=== PATIENT | female | born 1945 | race Caucasian/White ===

== ENCOUNTER → 2017-02-03 | Outpatient (CLI) | payer MEDICARE, BC ==
[~2017-02-03] MED LIST: AMOXICILLIN 8751 TAB PO; BENICAR 20MG TA20 MG PO; BENICAR HCT 12.1 TAB PO; CALCIUM 600-D 61 TAB PO; CALCIUM600 M2 PO; CRESTOR5 MG PO; FLAGYL500 MG PO; HCTZ 25MG TAB25 MG PO; K-DUR 10 MEQ T10 MEQ PO; KLOR-CON 1010 MEQ PO; KLOR-CON M2020 MEQ PO; LEVAQUIN 250MG250 MG PO; NORCO 325 MG-51 TAB PO; ONDANSETRON4 MG PO; POTASSIUM CH2 MEQ/ML PO; PRINIVIL40 MG PO; REGLAN 5MG T5 MG/TAB PO; TYLENOL 325MG325 MG PO; VESICARE 5MG5 MG PO; VOLTAREN GEL 1%1 TU TP; WOMEN'S DAILY F1 TAB PO; ZOFRAN 4MG T4 MG/TAB PO; [UNRECOGNIZED DRUG - OTHER] PO
== END ==
LOC: MC.RAD 14:09
DX: Z12.31 Encounter for screening mammogram for malignant neoplasm of breast (principal)

== ENCOUNTER → 2018-03-16 | Outpatient (CLI) | payer MEDICARE, BC | LOC: MC.RAD 03-09 14:40 | DX: Z12.31 Encounter for screening mammogram for malignant neoplasm of breast (principal) ==

== ENCOUNTER → 2018-03-23 | Outpatient (CLI) | payer MEDICARE, BC | LOC: MC.RAD 09:00 | DX: R92.0 Mammographic microcalcification found on diagnostic imaging of breast (principal) | CPT/HCPCS: G0279 ==

== ENCOUNTER 2018-09-07 14:14 | Outpatient (CLI) | payer MEDICARE, BC ==
[~2018-09-07] VITALS: Ht 162.6 cm; Wt 79.3 kg
[2018-09-07 14:34] VITALS: BP 167/75; PULSE 77; TEMP 98.1
== END 2018-09-07 14:56 | disposition home or self-care (01) ==
LOC: EUO 14:14
DX: M81.0 Age-related osteoporosis without current pathological fracture (principal)
CPT/HCPCS: J0897

== ENCOUNTER 2019-03-12 13:12 | Outpatient (CLI) | payer MEDICARE, BC ==
[~2019-03-12] VITALS: Ht 162.6 cm; Wt 75.9 kg
[2019-03-12 13:32] VITALS: BP 141/72; PULSE 83; TEMP 98.4
== END 2019-03-12 14:08 | disposition home or self-care (01) ==
LOC: EUO 13:12
DX: M81.0 Age-related osteoporosis without current pathological fracture (principal)
CPT/HCPCS: J0897

== ENCOUNTER → 2019-03-26 | Outpatient (CLI) | payer MEDICARE, BC | LOC: MC.RAD 09:15 | DX: Z12.31 Encounter for screening mammogram for malignant neoplasm of breast (principal); N63.10 Unspecified lump in the right breast, unspecified quadrant ==

== ENCOUNTER 2019-08-15 07:49 | Day surgery (SDC) | payer MEDICARE, BC ==
--- NOTE | 2019-08-14 11:16 | NUR ---
LEFT MESSAGE FOR PATIENT TO RETURN PHONE CALL IN REGARDS TO ID SCREENING AND MEDICAL HISTORY.
[2019-08-15] VITALS (8 sets, daily range): BP systolic 120–173; BP diastolic 63–98; PULSE 62–72; TEMP 98.8
[~2019-08-15] VITALS: Ht 162.6 cm; Wt 77.4 kg
[2019-08-15] MEDS ORDERED: MOBIC15 MG PO (08:36)
[2019-08-15] MEDS ORDERED: TYMLOS1.56 ML SQ (08:37)
[2019-08-15] MEDS ORDERED: CALCIUM CARBON650 M2 PO (08:38)
[2019-08-15] MEDS ORDERED: ASPIRIN E.C. 8181 MG PO (08:39)
[2019-08-15] MEDS ORDERED: ADVIL200 MG PO (08:40)
[2019-08-15] MEDS ORDERED: LOPRESSOR 225 MG/TAB PO (08:42)
[2019-08-15 09:09] LABS: HEMATOCRIT 44.1 % (37.0-47.0); HEMOGLOBIN 14.2 g/dl (12.5-16.0); MEAN CELL VOLUME 91 fl (80.0-100.0); MEAN CORPUSCULAR HEMOGLOBIN 29 pg (27.0-31.0); MEAN CORPUSCULAR HGB CONC 32 g/dl (33.0-37.0); MEAN PLATELET VOLUME 9.2 fl (7.4-10.4); PLATELET COUNT 246 K/mm3 (130-400); RED BLOOD COUNT 4.83 M/mm3 (4.10-5.30); REDCELL DISTRIBUTION WIDTH-CV 13.4 % (11.5-14.5)
[2019-08-15 09:16] LABS: CALCIUM 10.6 mg/dL (8.4-10.2); CREATININE, serum 0.89 (0.52-1.25); POTASSIUM 3.7 mmol/L (3.4-5.0)
[2019-08-15 09:18] LABS: INR 0.9 (0.8-3.0); PROTHROMBIN TIME 10.3 SECONDS (9.7-12.8)
[2019-08-15 09:21] LABS: PARTIAL THROMBOPLASTIN TIME 29.6 SECONDS (26.0-37.0)
--- NOTE | 2019-08-15 10:48 | NUR ---
SEE MERGE FORALL MEDICATION ADMIN TIMES AND INTRA AND POST SEDATION ASSESSMENT
[2019-08-15] MEDS ORDERED: LIPITOR 40MG TA40 MG PO (11:30)
--- NOTE | 2019-08-15 13:45 | NUR ---
Discharge instructions reviewed with pt. Pt voices understanding. Pt tolerating intake with no N/V. 5 mls of air removed from TR Band. After 5 minutes, no bleeding, remaining air removed. 4x4 gauze and coban applied to right radial wrist. Pt up and ambulating in and around the unit with no complications. Pt voided with no complications. IV was discontinued with catheter tip intact, no phlebitis or infiltration. Adina, daughter, was called and notified pt is ready to be discharged. Pt was discharged via w/c to the care of daughter in private vehicle with discharge folder and belongings in hand.
== END 2019-08-15 14:00 | disposition home or self-care (01) ==
LOC: COL.CAR 07:49
PROVIDERS: Internal Medicine Cardiovascular Disease
DX: I25.10 Atherosclerotic heart disease of native coronary artery without angina pectoris (principal); R94.39 Abnormal result of other cardiovascular function study; I10 Essential (primary) hypertension; E87.6 Hypokalemia; E78.2 Mixed hyperlipidemia; M81.0 Age-related osteoporosis without current pathological fracture; I08.1 Rheumatic disorders of both mitral and tricuspid valves; Z88.8 Allergy status to other drugs, medicaments and biological substances; Z88.6 Allergy status to analgesic agent
CPT/HCPCS: J1644; J2250; J3010; Q9967

== ENCOUNTER → 2021-02-16 | Outpatient (CLI) | payer MEDICARE, BC ==
[~2021-02-16] MED LIST changes: +ADVIL200 MG PO; +ASPIRIN E.C. 8181 MG PO; +BACTRIM DS 8001 TAB PO; +CALCIUM CARBON650 M2 PO; +LIPITOR 40MG TA40 MG PO; +LOPRESSOR 225 MG/TAB PO; +MOBIC15 MG PO; +TYMLOS1.56 ML SQ
== END ==
LOC: COL.RAD 12:28
DX: M25.552 Pain in left hip (principal)
CPT/HCPCS: J3301; Q9967

== ENCOUNTER 2021-03-03 12:35 | Inpatient (IN) | payer MEDICARE, BC ==
[~2021-03-03] VITALS: Ht 162.6 cm; Wt 79.1 kg
[2021-03-03 14:20] LABS: BASO % 0.2 % (0.0-2.0); GRAN # 11.2 K/mm3 (1.4-6.5); HEMATOCRIT 39.8 % (37.0-47.0); HEMOGLOBIN 12.3 g/dl (12.5-16.0); LYMPH % 7.6 % (20.0-51.0); MEAN CELL VOLUME 90 fl (80.0-100.0); MEAN CORPUSCULAR HEMOGLOBIN 28 pg (27-31); MEAN CORPUSCULAR HGB CONC 31 g/dl (33.0-37.0); MEAN PLATELET VOLUME 9.1 fl (7.4-10.4); MONO # 0.2 K/mm3 (0.1-0.6); MONO % 1.6 % (1.7-9.3); PLATELET COUNT 266 K/mm3 (130-400); RED BLOOD COUNT 4.44 M/mm3 (4.10-5.30); REDCELL DISTRIBUTION WIDTH-CV 14.4 % (11.5-14.5)
--- NOTE | 2021-03-03 14:30 | NUR ---
Patient tranferred to room #337. Patient is pleasantly confused and keeps asking for her . This nurse reminder her he was here this morning and would not be back because he had some things to take care of at home. Patient is also anxious and has seroquel. Patient is very forgetful and tearful at times because she "does not know what is going on and wants to talk to Stevo." Patient is resting comfortably in bed. Call light and bedside are within reach. Will continue to monitor patient throughout shift.
[2021-03-03 14:36] LABS: ALANINE AMINOTRANSFERASE 15 U/L (0-55); ALBUMIN 3.7 gm/dL (3.4-4.8); ALKALINE PHOSPHATASE 160 U/L (40-150); ANION GAP 14 mmol/L (7-16); AST,SGOT 31 U/L (5-34); BILIRUBIN,TOTAL 0.6 mg/dL (0.2-1.2); BLOOD UREA NITROGEN 24 mg/dL (10-20); CALCIUM 9.5 mg/dL (8.4-10.2); CARBON DIOXIDE 25 mmol/L (23-31); CHLORIDE 98 mmol/L (98-107); CREATININE, serum 0.74 mg/dL (0.57-1.11); GLUCOSE 144 mg/dL (70-99); LIPASE 32 U/L (8-78); POTASSIUM 4.1 mmol/L (3.5-4.5); SODIUM 137 mmol/L (136-145); TOTAL PROTEIN 7.5 gm/dL (6.2-8.1)
[2021-03-03 14:39] LABS: COLLECTION METHOD CLEAN CATCH
[2021-03-03 14:44] LABS: TROPONIN-I < 0.010 ng/mL (0.00-0.033)
[2021-03-03 15:14] LABS: MUCOUS Present (NOT PRESENT); PH 5 (5-8); SQUAMOUS EPITHELIAL None Seen /hpf (0-10); URINE APPEARANCE Hazy (CLEAR/HAZY); URINE BACTERIA Many /hpf (NONE SEEN); URINE BILIRUBIN Negative (NEGATIVE); URINE BLOOD Negative (NEGATIVE); URINE COLOR Yellow (YELLOW); URINE GLUCOSE Negative (NEGATIVE); URINE KETONE Negative (NEGATIVE); URINE LEUKOCYTE ESTERASE 3+ (NEGATIVE); URINE NITRATE Positive (NEGATIVE); URINE PROTEIN(semi-quant) Negative (NEGATIVE); URINE UROBILINOGEN Negative (NEGATIVE)
[2021-03-03] MEDS ORDERED: NORCO 325 MG-51 TAB PO (15:39)
[2021-03-03] MEDS ORDERED: CEPHALEXIN500 M1 PO (15:39)
--- NOTE | 2021-03-03 16:17 | NUR ---
FLORENCE responded to consult. The ED doctor notified FLORENCE that the patient is at her baseline and ready to discharge from the ED. The patient had presented with LLE pain and a possible UTI. FLORENCE contacted the patient's daughter, Jocelyn (ph#[phone]), to update on the above. Jocelyn reports that she has to work another hour, but then she will come and pick the patient up and bring her home. She is coming from [place]. Jocelyn became tearful. She reports that she is unsure how she will get the patient into her home, but she will figure it out. FLORENCE inquired if the patient can stay with her or her sister. Jocelyn reports that she has two stairs and that the patient cannot stay with either of them. FLORENCE informed her of the option of having EMS meet them at the patient's home to assist them getting in. Jocelyn declined and reports that she will figure it out. FLORENCE then offered resources for local nursing homes. Jocelyn reports that she has already been in contact with several nursing homes and they all have COVID restrictions. FLORENCE disussed the option of getting home health set up. Jocelyn was agreeable to this and to use [facility]. Jocelyn informed FLORENCE that the patient is not at her baseline. She reports that the patient was driving and walking two days ago. She would like an update from the RN or doctor on the findings of the patient's UA. She reports that she will be picking the patient up today, once she gets off work. FLORENCE updated the ED staff and the doctor. The patient's RN was in another room at this time. FLORENCE contacted and faxed a referral and the [id number], signed by the ED doctor to Aries at [facility]. Aries reports that they have had the patient in the past and are able to accept her again. No additional needs at this time.
[2021-03-03] MEDS ORDERED: NEURONTIN300 MG/CAP PO (16:46)
[2021-03-03] MEDS ORDERED: VESICARE10 MG PO (16:46)
[2021-03-03 18:17] VITALS: BP 134/55; PULSE 83; TEMP 97.9
[2021-03-03 18:58] VITALS: BP 129/53; PULSE 83; TEMP 98.3
--- NOTE | 2021-03-03 19:13 | NUR ---
Patient transferred from ED to room #342. Patient is propped up on pillows on right side d/t orders and with ice pack. Patient will more than likely have surgery tomorrow but not yet confirmed. Patient has a Amin in place. Patient is NPO. Pt started on a Medrol Dosepak this a.m. Patient does not have hx of recent falls. Patient lives at home with daughter and has home health. Patient is A&O x 3. Patient's left lung, middle lobe removed. Patient oriented to room; call light and bedside table are within reach.
[2021-03-03 22:58] VITALS: BP 140/54; PULSE 77; TEMP 98.6
--- NOTE | 2021-03-03 23:52 | NUR ---
Patient assessed around 2024. Alert and oriented, and able to make needs known. Reported level 8 pain to left hip, and given PRN Morphine as requested. Peripheral INT to left AC. IV fluids started per orders. Voices no questions, needs, or concerns at this time. In bed with call light within reach
[2021-03-04] VITALS (12 sets, daily range): BP systolic 91–147; BP diastolic 39–60; PULSE 63–107; TEMP 97.2–98.2
--- NOTE | 2021-03-04 05:41 | NUR ---
Patient given PRN Morphine once this shift as requested for pain. Has been resting in bed with call light within reach, eyes closed. No further complaints of pain or discomfort voiced at this time.
[2021-03-04 06:58] LABS: BASO % 0.3 % (0.0-2.0); EOS # 0.1 K/mm3 (0.0-0.7); EOS % 0.6 % (0.0-4.0); GRAN # 7.9 K/mm3 (1.4-6.5); GRAN % 70.2 % (42.2-75.2); HEMOGLOBIN 10.6 g/dl (12.5-16.0); LYMPH # 2.2 K/mm3 (1.2-3.4); LYMPH % 19.3 % (20.0-51.0); MEAN CELL VOLUME 89 fl (80.0-100.0); MEAN CORPUSCULAR HEMOGLOBIN 28 pg (27-31); MEAN CORPUSCULAR HGB CONC 31 g/dl (33.0-37.0); MEAN PLATELET VOLUME 9.5 fl (7.4-10.4); PLATELET COUNT 263 K/mm3 (130-400); RED BLOOD COUNT 3.81 M/mm3 (4.10-5.30); REDCELL DISTRIBUTION WIDTH-CV 14.4 % (11.5-14.5)
[2021-03-04 07:05] LABS: HEMATOCRIT 33.9 % (37.0-47.0)
[2021-03-04 07:13] LABS: CALCIUM 9.4 mg/dL (8.4-10.2); CREATININE, serum 1.05 mg/dL (0.57-1.11); POTASSIUM 3.6 mmol/L (3.5-4.5)
--- NOTE | 2021-03-04 07:26 | NUR ---
Report received from ROHIT Pena. Patient is resting in bed. Doctor was in with her and discussing her care and stated her dressing needed to be changed and dressed with an aquacell. Call light and bedside table are within reach. Will continue to monitor patient throughout shift.
--- NOTE | 2021-03-04 07:44 | NUR ---
Ibrhaima from ortho called and told this nurse he was going to put an order in for a MRI and requested an update as to when cardiology sees patient. This nurse will comply.
--- NOTE | 2021-03-04 07:46 | NUR ---
Patient was seen by elvin Smith and was discussing with her in regards to upcoming surgery. He told the patient before they can proceed with surgery, she has to cleared with button machine operator. Patient voiced she understands. Luis also requested this nurse updates him after cardio sees patient.
--- NOTE | 2021-03-04 08:37 | NUR ---
Patient left floor to go to MRI.
--- NOTE | 2021-03-04 11:34 | NUR ---
Patient's surgery has been scheduled for today at 1700 so will have patient ready at 1600.
[2021-03-04 11:39] LABS: PROTHROMBIN TIME 11.6 SECONDS (9.7-12.8)
--- NOTE | 2021-03-04 13:25 | NUR ---
Machine Tool Mechanic attended clinical rounds with the team and patient may have surgery later today. SW met with patient to follow up on discharge planning. Patient states she lives alone in [place] and sees Dr. Azalea Sawant for primary care. Patient advised she has a cane and two walkers at home. Patient reports she was independent prior to her fall. SW advised patient that she would likely need rehab at time of discharge and patient agrees. Patient states she has been to both [facility] and [facility] in the past and would be agreeable to either facilty. Patient would like SW to contact her daughter, Jocelyn to discuss her preferences. SW contacted Jocelyn who agrees that patient will likely need rehab at time of discharge. Jocelyn advised her preferences are 1) [facility] 2) [facility] and 3) [facility]. SW faxed referral to [facility] and [facility] then contacted MELISSA Martin Director to give referral. Discharge Plan: Post acute rehab, pending referrals
--- NOTE | 2021-03-04 13:29 | NUR ---
Mail Service Coordinator updated contacted Aries at [facility] and updated him that patient was admitted and will likely need post acute rehab.
--- NOTE | 2021-03-04 16:08 | NUR ---
Pt off the floor for surgery
--- NOTE | 2021-03-04 19:50 | NUR ---
PT TO ROOM 342 FROM PACU. AWAKE AND ORIENTED X4. HAVING BURNING PAIN TO LT HIP. REPOSITIONED. SEE MAR FOR PAIN MED GIVEN. CALL LIGHT IN REACH. BED ALARM SET.
--- NOTE | 2021-03-04 22:09 | NUR ---
PT RESTING. NO DISTRESS.
[2021-03-05] VITALS (15 sets, daily range): BP systolic 74–112; BP diastolic 35–58; PULSE 64–98; TEMP 97.5–99.2
--- NOTE | 2021-03-05 00:49 | NUR ---
PT RESTING. NO DISTRESS.
--- NOTE | 2021-03-05 05:52 | NUR ---
PT HAS RESTED WELL THIS SHIFT. REPOSITIONS SELF. TAKING PO FLUID WELL. PAIN CONTROLLED WITH MS.
[2021-03-05 06:13] LABS: BASO % 0.1 % (0.0-2.0); GRAN # 8.8 K/mm3 (1.4-6.5); GRAN % 86.3 % (42.2-75.2); HEMOGLOBIN 10.2 g/dl (12.5-16.0); LYMPH # 0.7 K/mm3 (1.2-3.4); LYMPH % 7.1 % (20.0-51.0); MEAN CELL VOLUME 90 fl (80.0-100.0); MEAN CORPUSCULAR HEMOGLOBIN 28 pg (27-31); MEAN CORPUSCULAR HGB CONC 31 g/dl (33.0-37.0); MEAN PLATELET VOLUME 9.4 fl (7.4-10.4); MONO # 0.6 K/mm3 (0.1-0.6); MONO % 6.1 % (1.7-9.3); PLATELET COUNT 230 K/mm3 (130-400); RED BLOOD COUNT 3.64 M/mm3 (4.10-5.30); REDCELL DISTRIBUTION WIDTH-CV 14.1 % (11.5-14.5)
[2021-03-05 06:23] LABS: HEMATOCRIT 32.8 % (37.0-47.0)
[2021-03-05 06:44] LABS: CALCIUM 8.5 mg/dL (8.4-10.2); CREATININE, serum 0.74 mg/dL (0.57-1.11); POTASSIUM 4.1 mmol/L (3.5-4.5)
--- NOTE | 2021-03-05 10:32 | NUR ---
Initial visit; Patient thanked fireman helper for looking in on her though declined further spiritual care.
--- NOTE | 2021-03-05 12:15 | NUR ---
PATIENT JUST CAME BACK FROM BATHROOM TO HAVE A BM AND GOT A LITTLE DIZZY. NOTED B/P IN THE 80'S SYSTOLIC. PATIENT IS A&O AND RESTING IN BED WITHOUT COMPLAINTS. B/P RECHECK WAS STILL IN THE 80'S EVEN WITH HOB FLAT. RN CALLED HOSPITALIST, SEE ORDERS FOR FLUID BOLUS. PATIENT CONTINUES TO DENIES COMPLAINTS AND IS JUST CHATTING WITH STAFF. WILL MONITOR.
--- NOTE | 2021-03-05 13:19 | NUR ---
Glazier Apprentice faxed clinical updates to [facility] and [facility]. Mariam at [facility] advised they can accept. Jayson at [facility] had concerns about patient's medications, Tymlos which is very expensive. FLORENCE also spoke with Veronica, [facility] who advised she can accept pending bed availability. FLORENCE contacted patient's daughter, Jocelyn to provide update. Jocelyn reports she is fine with either [facility] or [facility], but that she will leave it up to the patient. Discharge Plan: [facility] vs [facility] (both can accept)
--- NOTE | 2021-03-05 19:30 | NUR ---
PT STILL HYPOTENSIVE. ASYMPTOMATIC. NO NEEDS AT THIS TIME.
[2021-03-06] VITALS (7 sets, daily range): BP systolic 95–143; BP diastolic 41–63; PULSE 61–102; TEMP 97.9–100
--- NOTE | 2021-03-06 01:13 | NUR ---
NOTIFIED ERNIE RODRIGUEZ REGARDING BP 95/41. SEE ORDER FOR BOLUS.
[2021-03-06 07:39] LABS: BASO % 0.2 % (0.0-2.0); EOS # 0.3 K/mm3 (0.0-0.7); EOS % 3.5 % (0.0-4.0); GRAN # 5.7 K/mm3 (1.4-6.5); GRAN % 70.2 % (42.2-75.2); LYMPH # 1.6 K/mm3 (1.2-3.4); LYMPH % 19.8 % (20.0-51.0); MEAN CELL VOLUME 94 fl (80.0-100.0); MEAN CORPUSCULAR HGB CONC 30 g/dl (33.0-37.0); MONO # 0.5 K/mm3 (0.1-0.6); MONO % 5.8 % (1.7-9.3); PLATELET COUNT 195 K/mm3 (130-400); RED BLOOD COUNT 3.41 M/mm3 (4.10-5.30); REDCELL DISTRIBUTION WIDTH-CV 14.6 % (11.5-14.5)
[2021-03-06 07:41] LABS: HEMATOCRIT 31.9 % (37.0-47.0); HEMOGLOBIN 9.6 g/dl (12.5-16.0); MEAN CORPUSCULAR HEMOGLOBIN 28 pg (27-31)
[2021-03-06 07:50] LABS: CALCIUM 8.4 mg/dL (8.4-10.2); CREATININE, serum 0.74 mg/dL (0.57-1.11)
--- NOTE | 2021-03-06 08:19 | NUR ---
PT ASSESSED. NO COMPLAINTS OF PAIN OR DYSPNEA. NO SIGNS OR SYMPTOMS OF DISTRESS. CALL LIGHT WITHIN REACH.
--- NOTE | 2021-03-06 15:55 | NUR ---
ORTHO CALLED FRO ELEVATED TEMPERATURE AT 100. ADVISED TO GIVE TYLENOL AND ENSURE PT USES INCENTIVE SPIROMETER. NO TOHER CONCERNS AT THIS TIME. CALL LIGHT WITHIN REACH
--- NOTE | 2021-03-06 19:30 | NUR ---
PT MADELEINE NEWMAN. PROVIDED EMOTIONAL SUPPORT. RESTING IN BED. SEE MAR FOR TYLENOL GIVEN FOR LT HIP PAIN.
--- NOTE | 2021-03-07 02:02 | NUR ---
ASSISTED TO [facility]. HAS HX URINARY URGENCY. VOIDED FIRST TIME POST ABREU DC'D WITHOUT DIFFICULTY.
--- NOTE | 2021-03-07 03:43 | NUR ---
ULTRAM 50MG GIVEN FOR LT HIP PAIN LEVEL 07/23
[2021-03-07 04:31] VITALS: BP 135/58; PULSE 77; TEMP 98.9
--- NOTE | 2021-03-07 05:16 | NUR ---
B/P WITHIN NORMAL LIMITS THROUGHOUT THIS SHIFT. GOOD PAIN CONTROL WITH ULTRAM. VOIDING WITHOUT DIFFICULTY SINCE ABREU DC'D. QUIET NIGHT.
[2021-03-07 06:42] LABS: BASO % 0.5 % (0.0-2.0); EOS # 0.4 K/mm3 (0.0-0.7); EOS % 4.6 % (0.0-4.0); GRAN # 5.5 K/mm3 (1.4-6.5); GRAN % 64.3 % (42.2-75.2); LYMPH % 23.7 % (20.0-51.0); MEAN CELL VOLUME 92 fl (80.0-100.0); MEAN CORPUSCULAR HGB CONC 31 g/dl (33.0-37.0); MEAN PLATELET VOLUME 9.5 fl (7.4-10.4); MONO # 0.5 K/mm3 (0.1-0.6); MONO % 6.1 % (1.7-9.3); PLATELET COUNT 186 K/mm3 (130-400); RED BLOOD COUNT 3.38 M/mm3 (4.10-5.30); REDCELL DISTRIBUTION WIDTH-CV 14.3 % (11.5-14.5)
[2021-03-07 06:51] LABS: HEMATOCRIT 31.1 % (37.0-47.0); HEMOGLOBIN 9.6 g/dl (12.5-16.0); MEAN CORPUSCULAR HEMOGLOBIN 28 pg (27-31)
[2021-03-07 07:01] LABS: CREATININE, serum 0.57 mg/dL (0.57-1.11); POTASSIUM 3.6 mmol/L (3.5-4.5)
[2021-03-07 08:30] VITALS: BP 150/69; PULSE 81; TEMP 98.8
--- NOTE | 2021-03-07 10:28 | NUR ---
PT ASSESSED. NO COMPLAINTS OF PAIN OR DYSPNEA. NO SIGNS OR SYMPTOMS OF DISTRESS. ALL LIGHT WITHIN REACH.
[2021-03-07 12:00] VITALS: BP 153/75; PULSE 91; TEMP 97.3
[2021-03-07 16:16] VITALS: BP 152/75; PULSE 81; TEMP 98.1
[2021-03-07 20:00] VITALS: BP 149/68; PULSE 84; TEMP 99.4
--- NOTE | 2021-03-07 22:33 | NUR ---
ASSISTED FROM CHAIR TO BED. ALEXI WELL. REQUIRED ASSIST TO LIFT LEGS INTO BED. CALL LIGHT IN REACH. BED ALARM SET.
[2021-03-08] VITALS: BP 139/66; PULSE 86; TEMP 98.3
[2021-03-08 04:00] VITALS: BP 153/70; PULSE 92; TEMP 98.4
--- NOTE | 2021-03-08 05:51 | NUR ---
PT HAD RESTFUL NIGHT. PAIN CONTROLLED WITH ULTRAM. PT VOIDING WELL. B/P HAS BEEN WNL'S.
[2021-03-08 06:41] LABS: MEAN CELL VOLUME 90 fl (80.0-100.0); MEAN CORPUSCULAR HGB CONC 31 g/dl (33.0-37.0); MEAN PLATELET VOLUME 9.8 fl (7.4-10.4); PLATELET COUNT 222 K/mm3 (130-400); REDCELL DISTRIBUTION WIDTH-CV 14.2 % (11.5-14.5)
[2021-03-08 06:52] LABS: HEMATOCRIT 29.6 % (37.0-47.0); HEMOGLOBIN 9.3 g/dl (12.5-16.0); MEAN CORPUSCULAR HEMOGLOBIN 28 pg (27-31)
[2021-03-08 06:53] LABS: CALCIUM 9.3 mg/dL (8.4-10.2); CREATININE, serum 0.57 mg/dL (0.57-1.11); POTASSIUM 3.8 mmol/L (3.5-4.5)
[2021-03-08 08:00] VITALS: BP 159/64; PULSE 100; TEMP 98.2
[2021-03-08 08:13] LABS: BAND 3 % (0-10); BASOPHIL 2 % (0-2); EOSINOPHIL 4 % (0-4); LYMPHOCYTE 28 % (20.0-51.0); NEUTROPHILS 58 % (42.0-75.2); NUCLEATED RED BLOOD CELL 1 (0-6); PLATELET ESTIMATE NORMAL (NORMAL)
--- NOTE | 2021-03-08 09:08 | NUR ---
PT ASSESSED. NO COMPLAINTS OF PAIN OR DYPNEA. NO SIGNS OR SYMPTOMS OF DISTRESS. CALL LIGHT WITHIN REACH
[2021-03-08 12:00] VITALS: BP 127/54; PULSE 74; TEMP 98.4
[2021-03-08] MEDS ORDERED: LIPITOR 40MG TA40 MG PO (12:54)
[2021-03-08] MEDS ORDERED: LOPRESSOR 225 MG/TAB PO (12:54)
[2021-03-08] MEDS ORDERED: PRINIVIL40 MG PO (12:56)
[2021-03-08] MEDS ORDERED: NEURONTIN300 MG/CAP PO (12:57)
[2021-03-08] MEDS ORDERED: TYLENOL 500MG500 MG PO (12:57)
[2021-03-08] MEDS ORDERED: ULTRAM 50MG TAB50 MG PO (12:57)
[2021-03-08] MEDS ORDERED: ASPIRIN 32325 MG/TA1 PO (12:57)
[2021-03-08] MEDS ORDERED: KLOR-CON M2020 MEQ PO (12:58)
[2021-03-08] MEDS ORDERED: OSCAL 500 TAB500 MG PO (12:58)
[2021-03-08] MEDS ORDERED: HCTZ 25MG TAB25 MG PO (12:59)
[2021-03-08] MEDS ORDERED: VESICARE10 MG PO (13:00)
[2021-03-08] MEDS ORDERED: MULTIVITAMIN FO1 CAP PO (13:01)
--- NOTE | 2021-03-08 14:05 | NUR ---
Supervisor Pipeline Maintenance and FLORENCE student attended clinical rounds with the team and patient is ready for discharge today. Patient was under the impression she would be discharged to [facility], however FLORENCE advised there may not be bed availability. FLORENCE collaborated with Gloria, Hemstitching Machine Operator who advised they would not be able to accept an admission in [facility] today. FLORENCE updated patient who is agreeable to go to [facility]. SW faxed clinical updates to [facility] and they are able to accept patient today. FLORENCE set transport time for 1430. FLORENCE faxed negative covid results and discharge orders. FLORENCE also updated Jocelyn, daughter with transport time. Discharge Plan: [facility] today
--- NOTE | 2021-03-08 14:45 | NUR ---
PT DISCHARGE COMPLETE. PACKET GIVEN TO FACILITY ATTENDING AMBULATORY CARE. ALL QUESTIONS ANSWERED. IV REMOVED. PT ESCORTED OUT.
== END 2021-03-08 14:52 | DRG 522 ==
LOC: COL.ER 12:35 → SURG 16:12
PROVIDERS: Emergency Medicine; Orthopaedic Surgery; Physician Assistant; Student in an Organized Health Care Education/Training Program; ADMIT Internal Medicine
PROC: 0SRS0J9 Replacement of Left Hip Joint, Femoral Surface with Synthetic Substitute, Cemented, Open Approach (ICD-10-PCS; principal; 2021-03-04 17:00)
DX: S72.012A Unspecified intracapsular fracture of left femur, initial encounter for closed fracture (principal); N39.0 Urinary tract infection, site not specified; I10 Essential (primary) hypertension; E78.5 Hyperlipidemia, unspecified; K90.0 Celiac disease; M19.90 Unspecified osteoarthritis, unspecified site; B96.20 Unspecified Escherichia coli [E. coli] as the cause of diseases classified elsewhere; I95.81 Postprocedural hypotension; Z85.118 Personal history of other malignant neoplasm of bronchus and lung; Z79.82 Long term (current) use of aspirin; Z20.822 Contact with and (suspected) exposure to COVID-19
CPT/HCPCS: 99223-AI; 99232-AI; 99233-AI; 99239; A9284; C1776; J0696; J1100; J2250; J2270; J2405; J2704; J2795; J3010; J7030; J7040; J7120

== ENCOUNTER → 2021-09-02 | Outpatient (CLI) | payer MEDICARE, BC ==
[~2021-09-02] MED LIST changes: +ASPIRIN 32325 MG/TA1 PO; +CEPHALEXIN500 M1 PO; +MULTIVITAMIN FO1 CAP PO; +NEURONTIN300 MG/CAP PO; +OSCAL 500 TAB500 MG PO; +TYLENOL 500MG500 MG PO; +ULTRAM 50MG TAB50 MG PO; +VESICARE10 MG PO
== END ==
LOC: COL.RAD 09:33
DX: Z08 Encounter for follow-up examination after completed treatment for malignant neoplasm (principal); M84.48XA Pathological fracture, other site, initial encounter for fracture; Z85.118 Personal history of other malignant neoplasm of bronchus and lung
CPT/HCPCS: Q9967

== ENCOUNTER → 2023-08-18 | Outpatient (CLI) | payer MEDICARE, BC ==
[~2023-08-18] MED LIST changes: +CYMBALTA 20MG20 MG PO; +MACROBID 1100 MG/CAP PO
[2023-08-19 01:42] LABS: COLLECTION METHOD CLEAN CATCH
[2023-08-19 01:56] LABS: PH 6.5 (5.0-8.5); URINE APPEARANCE CLEAR (CLEAR/HAZY); URINE BLOOD NEGATIVE (NEGATIVE); URINE COLOR YELLOW (YELLOW); URINE GLUCOSE NEGATIVE (NEGATIVE); URINE KETONE NEGATIVE (NEGATIVE); URINE NITRATE NEGATIVE (NEGATIVE); URINE PROTEIN(semi-quant) NEGATIVE (NEGATIVE); URINE UROBILINOGEN 0.2 E.U/dL (0.2-1.0)
== END ==
LOC: ZCOL.LAB 20:28
PROVIDERS: Internal Medicine
DX: N39.0 Urinary tract infection, site not specified (principal)